=== PATIENT | female | born 1945 | race African-American/Black ===

== ENCOUNTER 2017-01-23 23:47 | Emergency (ER) | payer MEDICARE ==
[2017-01-24] MEDS ORDERED: NORMAL SALINE 1000 ML 1,000 ML IV PRN ×2 (00:24)
[2017-01-24 00:29] LABS: ABSOLUTE BASOPHILS # (AUTO) 0.1 10^3/uL (0.0-0.2); ABSOLUTE LYMPHOCYTES (AUTO) 2.9 10^3/uL (0.5-4.7); ABSOLUTE MONOCYTES (AUTO) 2.2 10^3/uL (0.1-1.4); ABSOLUTE NEUT (AUTO) 12.2 10^3/uL (1.7-8.2); BASOPHILS % (AUTO) 0.5 % (0-2); HEMATOCRIT 17.4 % (36.0-47.0); HGB HCT DIFFERENCE -1.5; LYMPHOCYTES % (AUTO) 16.7 % (13-45); MEAN CORPUSCULAR HEMOGLOBIN 21.9 pg (27.0-33.4); MEAN CORPUSCULAR HGB CONC 30.3 g/dL (32.0-36.0); MEAN CORPUSCULAR VOLUME 72 fl (80-97); MONOCYTES % (AUTO) 12.8 % (3-13); RED CELL DISTRIBUTION WIDTH 27.7 % (11.5-14.0); WHITE BLOOD COUNT 17.4 10^3/uL (4.0-10.5)
[2017-01-24] MEDS ORDERED: PROTAMINE SULFATE INJ/PF 50 MG/5 ML SDV IV ONE (00:30)
[2017-01-24] MEDS ORDERED: PROTAMINE SULFATE INJ/PF 50 MG/5 ML SDV ONE ×2 (00:33)
--- NOTE | 2017-01-24 00:35 | ER Document Report ---
ED General - General Chief Complaint: Dizziness Stated Complaint: DIZZYNESS Time Seen by Provider: 01/23/17 23:56 Notes: Patient is a 71-year-old female with a past medical history of hypertension, hyperlipidemia, history of prior pulmonary emboli currently anticoagulated on Lovenox and warfarin who presents by EMS with dizziness and syncope. History is limited as when patient arrives she is noted to be critically ill warranting immediate interventions. Family does note that she has been taking both Lovenox and Coumadin as directed. She did apparently been doing well until today when she began to complain of dizziness and lightheadedness. - Related Data Allergies/Adverse Reactions: No Known Allergies Allergy (Unverified 01/24/17 03:08) Past Medical History - General Information source: Patient, Emergency Med Personnel - Social History Smoking Status: Never Smoker Frequency of alcohol use: None Drug Abuse: None Lives with: Family Family History: Reviewed & Not Pertinent Review of Systems - Review of Systems -: Yes ROS unobtainable due to patient's medical condition Physical Exam - Vital signs Vitals: Temp 97.3 F 01/23/17 23:51 Interpretation: Hypotensive, Tachycardic, Tachypneic Notes: PHYSICAL EXAMINATION: GENERAL: Pale, diaphoretic, critically ill in appearance HEAD: Atraumatic, normocephalic. EYES: Pupils equal round and reactive to light, extraocular movements intact, sclera anicteric, conjunctiva are normal. ENT: Pale oral mucosa. Nares patent, oropharynx clear without exudates. Dry mucous membranes. NECK: supple without lymphadenopathy LUNGS: Breath sounds clear to auscultation bilaterally and equal. No wheezes rales or rhonchi. HEART: Regular tachycardia without murmurs ABDOMEN:.Fast exam shows positive free fluid in all views. No rigidity. Diffuse mild tenderness on palpation. Well-healing laparoscopic incisional scars in the lower abdomen. EXTREMITIES: no pitting or edema. No cyanosis. NEUROLOGICAL: No focal neurological deficits. Moves all extremities spontaneously and on command. PSYCH: Lethargic, slow to respond SKIN: Warm, Dry, normal turgor, no rashes or lesions noted. Course - Re-evaluation Re-evalutation: 01/24/17 00:31 I examined the patient immediately upon her arrival. Documentation is delayed secondary to need to provide critical care to the patient. She arrived altered , lethargic, tachypneic, hypotensive initial pressures in the 70s systolic. Patient was cold to the touch, we were unable to obtain a temperature orally. Patient appeared pale, mildly diaphoretic. Immediate concern was for possible intra-abdominal bleed in the setting of recent hysterectomy and anticoagulation with both Lovenox as well as warfarin. Bedside fast exam did demonstrate a large amount of free fluid in her abdomen in the right upper quadrant, left upper quadrant and suprapubic windows. I immediately paged the surgeon to the bedside. Patient was transitioned to a trauma bay. Three-points of IV access were established. Blood began to be transfused through the IVs. The mass transfusion protocol was initiated. I established a Cordis into the left femoral vein. The blood products were transitioned to the cordis and 2 units of blood given within 5 minutes. I will attempt to limit saline transfusion. Patient is currently anticoagulated due to her history of pulmonary emboli but also has an IVC filter in place. I acknowledge the risk of rapid reversal of her anticoagulation, but the immediately threat appears to be from her intra- abdominal bleed with associated hemorrhagic shock. 100 units of protamine has also been administered to reverse Lovenox. Initial hemoglobin has returned at 5.3 with hematocrit of 17.4. , surgeon beef boner was paged to the bedside for consideration of surgical management 01/24/17 00:42 Blood pressures have dramatically improved now into the 120s-130 systolic. Patient is having several irregular beats but remains in sinus. We are transfusing the 3rd unit of packed red blood cells at this time and will begin transfusing FFP. I have contacted [facility] for emergent transfer. does not feel that the patient should go for an exploratory laparotomy particularly given that she is improving hemodynamically 01/24/17 01:[address] Gould from the medical intensive care unit at [facility] who has accepted for transfer. I also spoke with Dr. Ocampo the NURSE PRACTITIONER PHYSICIAN ASSISTANT on-call who is in agreement with the plan for transfer. Patient remains much more stable at this time. Blood pressures remained to be in the 120s-130s. She is no longer tachycardic. Continues to have a GCS of 15. There is no indication for an emergent airway at this time. Chest x-ray was obtained due to some rattling breath sounds and does show cardiomegaly but no overt vascular congestion or pulmonary edema. Patient does not have any history of congestive heart failure and review of her medications does not show any need for diuretics at baseline. We are restricting any further transfusion at this time as patient is normotensive without tachycardia. In total she has received 3 units of packed red blood cells and 2 units of FFP. 01/24/17 01:27 Patient's laboratories do show acute renal failure likely secondary to poor perfusion and blood loss over the last several days. Will continue to monitor closely 01/24/17 01:41 Patient now having increasing crackles on exam, breathing slightly faster. Again with her cardiomegaly on chest x-ray, I do worry the patient may have undiagnosed congestive heart failure and may be having some volume overload due to the required massive transfusion to hemodynamically stabilize her. Patient is now being transitioned to BiPAP. Will also give a small dose of furosemide 20 mg IV. TRALI is also on the diagnostic differential although this would be very acute for this presentation. Patient has also transitioned to atrial fibrillation although her current rate is in the low 100s. She does have a history of this although was initially in sinus rhythm on presentation. 01/24/17 02:07 Patient's work of breathing is much improved on BiPAP, she continues to talk in complete sentences, GCS 15. However, unfortunately her blood pressure is again beginning to down trend. She is now having additional blood pressures in the 80s systolic. Will transfuse an additional unit of packed red blood cells at this time. I do not see an indication to intubate the patient at this time given that her work of breathing has responded well to BiPAP and she continues to protect her airway. 01/24/17 02:22 Transport has arrived. Patient's pressures have begun to again downtrend. This is a very new and acute change. I suspect ongoing bleeding as the source. At this point given that transport has arrived with a flight crew and there would be a prolonged period of time to reactivate the surgical team here, I do not believe having our local surgeon readdress at this point would be the most expeditious way to get this patient definitive management. 2 additional units of packed red blood cells will be administered. I will also start patient on norepinephrine. I was informed by the nurse at the bedside that while was in the room he had given her a total of 4 L of normal saline. Patient will also receive an additional 20 units of furosemide. 01/24/17 02:29 Patient's blood pressure has responded well to 2 additional units of packed red blood cells. Norepinephrine has been started at a low dose of 2.5. 01/24/17 02:40 Patient's blood pressure has again unfortunately began to deteriorate. She has now received a total of 7 units of packed red blood cells. 1 additional unit is being transfused and during flight she will receive 2 additional units of FFP and additional unit of packed red blood cells if her blood pressure does not respond. Her norepinephrine has been increased to 15. I have contacted the MICU at [facility] and again spoke with Dr Gould and updated him on the patient 's deteriorating condition. 01/24/17 02:51 Blood pressures have begun to up trend into the upper 70s systolic. Again, although patient is not completely stable at this time, I believe she requires emergent transfer for definitive management at this time. The flight clear has been sent with 2 units of FFP and an additional unit of packed red blood cells. I have given a written order to transfuse these for further hypotension. I have also instructed them to begin epinephrine should her norepinephrine transfusion not appropriately stabilize her blood pressure. I have notified the receiving facility of the patient's condition at time of transfer. 01/24/17 03:18 - Vital Signs Vital signs: Temp Pulse Resp BP Pulse Ox 97.3 F 27 H 100 01/23/17 23:51 01/24/17 01:42 01/24/17 01:42 - Laboratory Result Diagrams: 01/24/17 00:13 01/24/17 00:13 Laboratory results interpreted by me: 01/24/17 01/24/17 01/24/17 00:13 00:13 00:13 WBC 17.4 H RBC 2.40 L Hgb 5.3 L Hct 17.4 L MCV 72 L MCH 21.9 L MCHC 30.3 L RDW 27.7 H Absolute Neutrophils 12.2 H Absolute Monocytes 2.2 H PT APTT Carbonic Acid ABG pH ABG pCO2 ABG pO2 ABG HCO3 ABG Total CO2 Sodium 131.9 L Potassium 5.5 H Carbon Dioxide 11 L Anion Gap 21 H BUN 37 H Creatinine 4.09 H Est GFR ( Amer) 13 L Est GFR (Non-Af Amer) 11 L Glucose 117 H Crossmatch See Detail 01/24/17 01/24/17 00:13 00:30 WBC RBC Hgb Hct MCV MCH MCHC RDW Absolute Neutrophils Absolute Monocytes PT 19.3 H APTT 48.6 H Carbonic Acid 0.56 L ABG pH 7.28 L ABG pCO2 18.7 L* ABG pO2 105.4 H ABG HCO3 8.5 L ABG Total CO2 9.1 L Sodium Potassium Carbon Dioxide Anion Gap BUN Creatinine Est GFR ( Amer) Est GFR (Non-Af Amer) Glucose Crossmatch - Diagnostic Test Radiology reviewed: Image reviewed, Reports reviewed Radiology results interpreted by me: 01/24/17 02:09 Chest x-ray: Moderate cardiac enlargement without overt failure - EKG Interpretation by Me Additional EKG results interpreted by me: 01/24/17 03:22 Sinus rhythm. Rate 99. No ST elevations or depressions. PVCs are present. QTC is 483. Critical Care Note - Critical Care Note Total time excluding time spent on procedures (mins): 102 Comments: Critical care time spent obtaining history from patient or surrogate, discussions with consultants, development of treatment plan with patient or surrogate, evaluation of patient's response to treatment, examination of patient , ordering and performing treatments and interventions, ordering and review of laboratory studies, re-evaluation of patient's condition, ordering and review of radiographic studies and review of old charts Discharge - Discharge Clinical Impression: Hemorrhagic shock, Intra abdominal hemorrhage Volume overload Qualifiers: Hypervolemia type: transfusion-associated Qualified Code(s): E87.71 - Transfusion associated circulatory overload Atrial fibrillation Qualifiers: Atrial fibrillation type: paroxysmal Qualified Code(s): I48.0 - Paroxysmal atrial fibrillation Condition: Critical Disposition: [facility]
[2017-01-24 00:36] LABS: BLOOD UREA NITROGEN 37 mg/dL (7-20); CALCIUM 9.7 mg/dL (8.4-10.2); CREATININE RESULT 4.09 mg/dL (0.52-1.25); GLUCOSE 117 mg/dL (75-110); POTASSIUM 5.5 mmol/L (3.6-5.0)
[2017-01-24] MEDS ORDERED: ONDANSETRON HCL INJ/PF 4 MG/2 ML SDV IV ONE (00:39)
[2017-01-24 00:42] LABS: ARTERIAL BLOOD BASE EXCESS -16.9 mmol/L; ARTERIAL BLOOD O2 SATURATION 97.4 % (94-98)
[2017-01-24] MEDS ORDERED: ONDANSETRON HCL INJ/PF 4 MG/2 ML SDV ONE (00:42)
[2017-01-24 00:45] LABS: PROTHROMBIN TIME 19.3 SEC (11.4-15.4)
[2017-01-24 00:46] LABS: PARTIAL THROMBOPLASTIN TIME 48.6 SEC (23.5-35.8)
[2017-01-24 00:48] LABS: CHLORIDE 100 mmol/L (98-107); SODIUM 131.9 mmol/L (137-145)
[2017-01-24 01:00] LABS: ANION GAP 21 (5-19); CARBON DIOXIDE 11 mmol/L (22-30)
[2017-01-24 01:10] LABS: HEMOGLOBIN 5.3 g/dL (12.0-15.5)
[2017-01-24 01:14] LABS: HYPOCHROMASIA SLIGHT; MICROCYTOSIS 1+; POLYCHROMASIA SLIGHT
[2017-01-24 01:15] LABS: ANISOCYTOSIS 3+; BURR CELLS SLIGHT; OVALOCYTES SLIGHT; POIKILOCYTOSIS SLIGHT; TEAR DROP CELLS SLIGHT
[2017-01-24] MEDS ORDERED: FUROSEMIDE INJ/PF 20 MG/2 ML SDV IV ONE (01:42)
[2017-01-24] MEDS ORDERED: DILTIAZEM HCL/D5W 125 MG/125 ML RTUINJ IV PRN (01:43)
[2017-01-24] MEDS ORDERED: FUROSEMIDE INJ/PF 20 MG/2 ML SDV ONE (01:44)
--- NOTE | 2017-01-24 01:54 | RADIOLOGY REPORT (SQ) ---
EXAM DESCRIPTION: CHEST SINGLE VIEW COMPLETED DATE/TIME: 01/24/2017 1:02 am REASON FOR STUDY: sob COMPARISON: None. EXAM PARAMETERS: NUMBER OF VIEWS: One view. TECHNIQUE: Single frontal radiographic view of the chest acquired. RADIATION DOSE: NA LIMITATIONS: None. FINDINGS: LUNGS AND PLEURA: Small bandlike atelectasis or scar of the left mid -lower lung field. M oderate lung volumes. Prominent interstitium. MEDIASTINUM AND HILAR STRUCTURES: No masses. Contour normal. HEART AND VASCULAR STRUCTURES: Moderate enlargement of the cardiac silhouette. BONES: No acute findings. HARDWARE: None in the chest. OTHER: No other significant finding. IMPRESSION: Moderate enlargement of the cardiac silhouette. Small left-sided atelectasis/scar. TECHNICAL DOCUMENTATION: JOB ID: [id number]
[2017-01-24] MEDS ORDERED: NOREPINEPHRINE BITARTRATE INJ/PF 4 MG/4 ML SDV IV ONE (02:25)
[2017-01-24 05:02] VITALS: BP 66/40
--- NOTE | 2017-01-24 06:29 | PDOC CONSULTATION ---
Consultation Consult Date: 01/24/17 Attending physician:: OVI POOLE Consult reason:: Hypotension, Recent hysterectomy History of Present Illness Patient complains of: Syncope History of Present Illness: MARGARET MARTINEZ is a 71 year old female who presents to [facility] ER by EMS after syncopal episode. Recent hysterectomy 5 days prior at [facility]. During that hospitalization patient had a PE had to be discharged on therapeutic Lovenox and was being ramped up on Coumadin. After discharge notably the patient had persistent worsening abdominal pain. On day of presentation she was found unconscious by her family members field by EMS blood pressure was 60/40. In ER on resuscitation methods BP was continually responsive to resuscitative efforts involving 3 units of blood 2 units of FFP. Fast exam and ER did reveal large amount of intra-abdominal fluid. Given this slow course of blood loss likely secondary to hypercoagulability secondary to the Lovenox dosing postoperatively. Prior history of A. fib she also had an IVC filter placed. Discussion with the family that was available at bedside allowed what we were able to obtain further past medical history. Past Medical History Cardiac Medical History: Reports: Atrial Fibrillation, Hypertension Past Surgical History Past Surgical History: Reports: Hysterectomy, Other - CVC - left femoral cordis (ER) Social History Lives with: Family Smoking Status: Never Smoker Frequency of Alcohol Use: None Hx Recreational Drug Use: No Family History Family History: Reviewed & Not Pertinent Parental Family History Reviewed: Yes Children Family History Reviewed: Yes Sibling(s) Family History Reviewed.: Yes Medication/Allergy Allergies/Adverse Reactions: No Known Allergies Allergy (Unverified 01/24/17 03:08) Review of Systems ROS unobtainable: Due to mental status - Limited given patient mentation Constitutional: PRESENT: fatigue, weakness Cardiovascular: PRESENT: dyspnea on exertion Gastrointestinal: PRESENT: heartburn, nausea. ABSENT: abdominal pain, coffee ground emesis, vomiting Neurological: PRESENT: confusion, dizziness, syncope Physical Exam Vital Signs: Temp Pulse Resp BP Pulse Ox 97.3 F 33 H 66/40 L 100 01/23/17 23:51 01/24/17 02:58 01/24/17 02:35 01/24/17 02:58 Intake & Output 01/22/17 01/23/17 01/24/17 06:59 06:59 06:59 Weight 104.326 kg General appearance: PRESENT: obese, severe distress Head exam: PRESENT: atraumatic Eye exam: PRESENT: conjunctiva pale Mouth exam: PRESENT: moist, neck supple Neck exam: ABSENT: tracheal deviation GI/Abdominal exam: PRESENT: diminished bowel sounds, distended, soft. ABSENT: guarding, tenderness Rectal exam: PRESENT: heme (+) stool Neurological exam: PRESENT: alert - Eventually arousable, followed commands, mild confusion given situation, awake, oriented to person, CN II-XII grossly intact. ABSENT: motor sensory deficit Results Laboratory Results: 01/24/17 00:13 01/24/17 00:13 01/24/17 01/24/17 01/24/17 00:13 00:13 00:13 WBC 17.4 H RBC 2.40 L Hgb 5.3 L Hct 17.4 L MCV 72 L MCH 21.9 L MCHC 30.3 L RDW 27.7 H Plt Count 244 Seg Neutrophils % 70.0 Lymphocytes % 16.7 Monocytes % 12.8 Eosinophils % 0.0 Basophils % 0.5 Absolute Neutrophils 12.2 H Absolute Lymphocytes 2.9 Absolute Monocytes 2.2 H Absolute Eosinophils 0.0 Absolute Basophils 0.1 Carbonic Acid HCO3/H2CO3 Ratio ABG pH ABG pCO2 ABG pO2 ABG HCO3 ABG O2 Saturation ABG Base Excess FiO2 Sodium 131.9 L Potassium 5.5 H Chloride 100 Carbon Dioxide 11 L Anion Gap 21 H BUN 37 H Creatinine 4.09 H Est GFR ( Amer) 13 L Est GFR (Non-Af Amer) 11 L Glucose 117 H Calcium 9.7 Blood Type A POSITIVE Antibody Screen NEGATIVE 01/24/17 00:30 WBC RBC Hgb Hct MCV MCH MCHC RDW Plt Count Seg Neutrophils % Lymphocytes % Monocytes % Eosinophils % Basophils % Absolute Neutrophils Absolute Lymphocytes Absolute Monocytes Absolute Eosinophils Absolute Basophils Carbonic Acid 0.56 L HCO3/H2CO3 Ratio 15:1 ABG pH 7.28 L ABG pCO2 18.7 L* ABG pO2 105.4 H ABG HCO3 8.5 L ABG O2 Saturation 97.4 ABG Base Excess -16.9 FiO2 4L Sodium Potassium Chloride Carbon Dioxide Anion Gap BUN Creatinine Est GFR ( Amer) Est GFR (Non-Af Amer) Glucose Calcium Blood Type Antibody Screen Impressions: Chest X-Ray 01/24/17 00:00 IMPRESSION: Moderate enlargement of the cardiac silhouette. Small left-sided atelectasis/scar. Status: Imported from PACS Assessment & Plan - Diagnosis (1) Hemorrhagic shock Is this a current diagnosis for this admission?: Yes Plan: Resuscitative efforts as per HPI. Continue n.p.o. Pain controlled Discussion with family members ultimately deciding for transfer to [facility] given recent hysterectomy Ultimate requirements from blood bank for 3 units of blood 2 units of FFP for jewish of normal vital signs Patient stable hemodynamically and pulmonary prior to transfer - Time Time Spent: 50 to 70 Minutes Critical Time spent with patient: 35 or more minutes Anticipated [facility] Within: within 24 hours
--- NOTE | 2017-01-24 07:18 | EKG REPORT ---
SEVERITY:- ABNORMAL ECG - SINUS TACHYCARDIA LVH WITH SECONDARY REPOLARIZATION ABNORMALITY : Confirmed by: Yeyo Gr MD 24-Jan-2017 07:18:29
== END 2017-01-24 02:58 | disposition short-term general hospital (02) ==
LOC: ER 23:47
PROC: 06HN33Z Insertion of Infusion Device into Left Femoral Vein, Percutaneous Approach (ICD-10-PCS; principal; 2017-01-23)
DX: T81.19XA Other postprocedural shock, initial encounter (principal); E87.71 Transfusion associated circulatory overload; I48.0 Paroxysmal atrial fibrillation; R42 Dizziness and giddiness; I10 Essential (primary) hypertension; E78.5 Hyperlipidemia, unspecified; Z79.01 Long term (current) use of anticoagulants
CPT/HCPCS: 93005; 96376; 99291; 99292; 96374; 96375; 86900; 86901; 36415; 36430; 86850; 82803; 85025; 85610; 85730; 80048; 86920; 71010; 93010; 94660; 36556; C1751; C1894; P9017; P9016; J1940; J2720; J2405

== ENCOUNTER → 2017-11-14 | Outpatient (CLI) | payer MEDICARE ==
--- NOTE | 2017-11-14 15:35 | WOMENS IMAGING REPORT ---
EXAM DESCRIPTION: BILAT SCREENING MAMMO W/CAD COMPLETED DATE/TIME: 11/14/2017 1:43 pm REASON FOR STUDY: BILATERAL SCREENING MAMMO/Z12.31 Z12.31 ENCNTR SCREEN MAMMOGRAM FOR MALIGNANT WILMAR PLASM OF MARLEE COMPARISON: None available TECHNIQUE: Standard craniocaudal and mediolateral oblique views of each breast recorded using [employer] l acquisition. LIMITATIONS: None. FINDINGS: Findings present which are benign by mammographic criteria. No suspicious masses, calcifi cations or architectural distortion. Pertinent benign findings: Benign bilateral vascular calcifications. Intramammary lymph node left br east upper outer quadrant Read with the assistance of CAD. .[facility] - R2 [employer] Version 1.3 .[facility] - R2 Cenova Version 1.3 .[facility] - R2 Cenova Version 2.4 .[facility] - R2 Cenova Version 2.4 .[facility] - R2 [employer] Sales Representative Version 9.2 Benign mammographic findings may include one or more of the following: Smooth masses, popcorn/rim/co arse calcifications, asymmetries, post-procedure changes, and lesions with long-standing stability. IMPRESSION: BENIGN MAMMOGRAPHIC FINDINGS. BIRADS 2 BREAST DENSITY: b. There are scattered areas of fibroglandular density. BIRAD: 2 BENIGN FINDING(S) RECOMMENDATION: ROUTINE SCREENING Please continue yearly bilateral screening mammography/tomosynthesis in November 2018 COMMENT: The patient has been notified of the results by letter per SA requirements. Additional no tification policies are in place for contacting patient with suspicious or incomplete findings. Quality ID #[id number]: The [employer] recommends an annual screening mammogram for women aged 40 years or over. This facility utilizes a reminder system to ensure that all patients receive reminder letters, and/or direct phone calls for appointments. This includes reminders for routine scr eening mammograms, diagnostic mammograms, or other Breast Imaging Interventions when appropriate. Th is patient will be placed in the appropriate reminder system. The [employer] (ACR) has developed recommendations for screening MRI of the breast s in certain patient populations, to be used in conjunction with mammography. Breast MRI surveillanc e may be appropriate for women with more than 20% lifetime risk of developing breast cancer as deter mined by genetic testing, significant family history of the disease, or history of mantle radiation f or Hodgkins Disease. ACR Practice Guidelines 2008. TECHNICAL DOCUMENTATION: FINDING NUMBER: (1) ASSESSMENT: (1) JOB ID: [id number] [employer]- All Rights Reserved Reading location - IP/workstation name: [email or web address]
== END ==
LOC: WI 13:15
PROVIDERS: ATTEND Obstetrics & Gynecology
DX: Z12.31 Encounter for screening mammogram for malignant neoplasm of breast (principal)
CPT/HCPCS: 77067